=== PATIENT | female | born 1985 | race Caucasian/White ===

== ENCOUNTER 2020-08-16 10:22 | Inpatient (IN) | payer OTHER ==
[~2020-08-16] VITALS: Ht 180.3 cm; Wt 81.6 kg
[2020-08-16 10:57] VITALS: BP 128/78
--- NOTE | 2020-08-16 10:57 | NUR ---
came to er complaints of sever abdominal pain . patient is 1 day post op ablation by dr العلي her pain meds not helping so she was asked to come to er for eval and admission
[2020-08-16] MEDS ORDERED: Omnipaque-300 100ml vial INJ PRN (11:00)
[2020-08-16] MEDS ORDERED: Morphine Sulfate 4mg/ml Inj (IV USE ONLY) IVP ONE ×2 (11:00→13:15)
[2020-08-16] MEDS ORDERED: LORazepam Inj 2mg/ml 1ml IV ONE (11:00)
--- NOTE | 2020-08-16 11:21 | Emergency Room Report ---
History of Present Illness General Chief Complaint: Abdominal Pain Source: Patient Present Illness HPI Patient is a 34-year-old female presents for increased lower abdominal pain after uterine artery embolization. Prior history of fibroids. Reports having previously been taking Percocet as well as tramadol. Reports having persistent pain. Had not been vomiting or having patient reports having several episodes of emesis. Patient had not had any bowel movement since procedure. Denies any dysuria. Reports having recent negative urine test. Denies any fever. No new leg pain or swelling. 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 COVID-19 Screening: Negative COVID-19 COVID-19 Testing Source: nasal Patient History Past Medical History: see triage record Now: No Reviewed Nursing Documentation: PMH: Agreed; PSxH: Agreed Review of Systems All Other Systems: negative except mentioned in HPI Physical Exam Vital Signs Date Time Temp Pulse Resp B/P (MAP) Pulse Ox O2 Delivery O2 Flow Rate FiO2 08/16/20 10:46 98.8 62 18 128/78 (95) 98 Room Air Sp02 EP Interpretation: reviewed, normal General Appearance: normal inspection, well appearing, no apparent distress, alert Head: atraumatic ENT: normal ENT inspection, hearing grossly normal, normal voice Neck: normal inspection, full range of motion, supple, no bony tend Respiratory: normal inspection, lungs clear, normal breath sounds, no respiratory distress, no retraction, no wheezing Cardiovascular #1: regular rate, rhythm, no edema Gastrointestinal: normal inspection, normal bowel sounds, soft, no guarding, no hernia Genitourinary: no CVA tenderness Musculoskeletal: normal inspection, back normal, normal range of motion Neurologic: alert, motor strength/tone normal, crystal calibrator III-XII nml as tested, oriented x3, responsive, speech normal, normal inspection Psychiatric: normal inspection, judgement/insight normal, mood/affect normal Lymphatic: normal inspection Medical Decision Making Diagnostic Impression: Primary Impression: Abdominal pain Additional Impression: Status post embolization of uterine artery ER Course Patient presented for abdominal pain. Differential diagnosis include was not limited to post procedure pain, urinary tract infection, perforation, among others. Laboratory testing as well as CT abdomen pelvis was ordered. Patient will be hospitalized persistent pain. Dr. Wong Beavers contacted me regarding the patient and patient will be seen by him. Patient will be admitted to Dr. Yeboah for inpatient management. Last Vital Signs Date Time Temp Pulse Resp B/P (MAP) Pulse Ox O2 Delivery O2 Flow Rate FiO2 08/16/20 10:57 98.8 18 128/78 98 Room Air 08/16/20 10:54 62 Status: unchanged Disposition: ADMITTED INPATIENT Condition: Stable Nba Londono MD Aug 16, 2020 11:21
--- NOTE | 2020-08-16 11:28 | NUR ---
ED Nurse Note:blood and urine sent to labs, pt. given iv meds
[2020-08-16 11:43] LABS: BASOPHILS % (AUTO) 0.6 % (0.0-2.0); EOSINOPHILS % (AUTO) 0.3 % (0.0-3.0); HEMATOCRIT 43.5 % (37.0-47.0); HEMOGLOBIN 14.1 G/DL (12.0-16.0); LYMPHOCYTES % (AUTO) 16.7 % (20.0-45.0); MEAN CORPUSCULAR VOLUME 88 FL (80-99); NEUTROPHILS % (AUTO) 75.3 % (45.0-75.0); PLATELET COUNT 166 K/UL (150-450); RED BLOOD COUNT 4.96 M/UL (4.20-5.40); RED CELL DISTRIBUTION WIDTH 11.7 % (11.6-14.8)
[2020-08-16 11:52] LABS: ANION GAP 8 mmol/L (5-15); APPEARANCE,URINE CLEAR; BILIRUBIN, URINE NEGATIVE (NEGATIVE); BLOOD UREA NITROGEN 7 mg/dL (7-18); CALCIUM 9.3 MG/DL (8.5-10.1); CARBON DIOXIDE 26 MMOL/L (21-32); CHLORIDE 103 MMOL/L (98-107); COLOR,URINE PALE YELLOW; CREATININE 0.7 MG/DL (0.55-1.30); GLUCOSE, URINE (UA) NEGATIVE (NEGATIVE); KETONES,URINE 3+ (NEGATIVE); LEUKOCYTE ESTERASE ,URINE NEGATIVE (NEGATIVE); NITRITE,URINE NEGATIVE (NEGATIVE); PH,URINE 5 (4.5-8.0); POTASSIUM 3.9 MMOL/L (3.5-5.1); PROTEIN,URINE NEGATIVE (NEGATIVE); SODIUM 137 MMOL/L (136-145); UROBILINOGEN,URINE NORMAL MG/DL (0.0-1.0)
[2020-08-16 12:13] LABS: ALANINE AMINOTRANSFERASE 17 U/L (12-78); ALBUMIN 3.6 G/DL (3.4-5.0); ALBUMIN/GLOBULIN RATIO 1.1 (1.0-2.7); ALKALINE PHOSPHATASE 45 U/L (46-116); ASPARTATE AMINO TRANSFERASE 17 U/L (15-37); BILIRUBIN,TOTAL 0.6 MG/DL (0.2-1.0)
[2020-08-16] MEDS ORDERED: TRAMADOL HCL50 MG ORAL (12:50)
[2020-08-16] MEDS ORDERED: AUGMENTIN 500-1 EACH ORAL (12:50)
[2020-08-16] MEDS ORDERED: PERCOCET 10-321 EAC1 ORAL (12:50)
--- NOTE | 2020-08-16 12:53 | NUR ---
report given to rn in med surg unit patient is to be transferd via gurney
[2020-08-16] MEDS ORDERED: Morphine Sulfate 4mg/ml Inj (IV USE ONLY) ONE (13:03)
--- NOTE | 2020-08-16 13:13 | Diagnostic Imaging Report ---
Clinical Indication: Abdominal pain, history of recent uterine artery embolization Technique: No oral contrast utilized, per emergency room physician request IV administration nonionic contrast. Venous phase spiral acquisition obtained through the abdomen and pelvis. Multiplanar reconstructions were generated. Total dose length product 389 mGycm. CTDIvol(s) 8 mGy. Dose reduction achieved using automated exposure control Comparison: none Findings: The uterus is enlarged, demonstrates multiple fibroids. The largest fibroid is hyperattenuating, as is a second smaller fibroid. The 2 largest fibroids both contain gas bubbles. There is a small retroperitoneal hematoma in the right side of the pelvis. This surrounds the distal right external iliac artery and cecal tip, and tracks up Gerota's fascia on the right. Due to complex shape, exact dimensions are difficult to provide, but this measures approximately 5.4 x 3.6 cm orthogonal axial dimensions at its largest width by about 12 cm craniocaudad. There is no evidence of pseudoaneurysm Lack of enteric contrast limits assessment of the GI tract. The distal esophagus, stomach, duodenum are unremarkable. No small bowel distention. There is a small amount of free fluid within the pelvis. The appendix is not definitely demonstrated, but no findings to suggest acute appendicitis are evident. No evidence of diverticulosis or diverticulitis. The liver contains several cysts as well as innumerable subcentimeter low-attenuation lesions which are too small to characterize. The gallbladder contains dense material, presumably contrast excreted by the liver from prior embolization procedure. The spleen is borderline enlarged, measuring 13 cm long axis dimension. The pancreas, adrenals, kidneys are unremarkable. No retroperitoneal or mesenteric mass or adenopathy. The bladder is distended. A small gas bubble is seen within the bladder nondependently. The included lung bases are clear. The bones are unremarkable. Impression: Small right pelvic retroperitoneal hematoma, mostly surrounding the distal right external iliac artery and cecal tip, presumably related to recent arterial access for uterine fibroid embolization procedure. No evidence of pseudoaneurysm Enlarged fibroid uterus. Dense material within several fibroids most likely represents retained contrast from recent fibroid embolization procedure. Gas within the largest fibroids is an expected finding and is presumably related to necrosis of the fibroids Distended bladder. Gas bubbles within the bladder most likely is due to recent catheterization correlate with any clinical history of such Limited assessment of the GI tract, due to lack of enteric contrast administration Small amount of free pelvic fluid, presumably physiologic Borderline splenomegaly Multiple hepatic cysts. Innumerable subcentimeter low-attenuation liver lesions, too small to characterize, likewise most likely representing benign simple cysts. The CT scanner at [facility] is accredited by the [employer] and the scans are performed using protocols designed to limit radiation exposure to as low as reasonably achievable to attain images of sufficient resolution adequate for diagnostic evaluation.
--- NOTE | 2020-08-16 13:24 | NUR ---
NURSE NOTES: I received telephone report from NORAH Stanley at ER; patient admitted to the floor 4E around 1315; alert x4; on room air, no sing of distress and shortness of breath; no sing of chest pain; Iv Righ-Hand 22G lushes well; skin intact; vitals stable; patient ambulatory; belonging counted and signed by receiving and admitting nurse's; patient had money $143; RN offered for save box for the money, however patient refused; patient stable at this time; will keep monitoring.
[2020-08-16 13:28] VITALS: BP 134/81
[2020-08-16 16:00] VITALS: BP 108/63
[2020-08-16] MEDS: Potassium Chloride 20 MEQ in Dextrose 5%/Lactated Ringer's 1,000 ML IV SCH ×2 (16:33→22:37)
[2020-08-16] MEDS: HYDROmorphone 1mg/ml Carpuject IVP PRN (16:47)
[2020-08-16] MEDS ORDERED: Milk of Magnesia 30ml Ud ORAL PRN (17:45)
[2020-08-16] MEDS ORDERED: Miralax 17gm pkt ORAL PRN (17:45)
--- NOTE | 2020-08-16 17:45 | History & Physical ---
History of Present Illness General Date patient seen: Aug 16, 2020 Reason for Hospitalization: Abdominal Pain Present Illness HPI 34 F h/o UF POD1 S/P UFE p/w BLQ pain. AFVSS on RA. CT without acute findings. No BM x 3 days. No FC, no CP, no SOB, no NVDC. No bleeding. Allergies: Coded Allergies: No Known Allergies (Unverified , 08/16/20) COVID-19 Screening Contact w/high risk pt: No Experienced COVID-19 symptoms?: No Medication History Scheduled Amoxicillin/Potassium Clav 500-125 Tablet* (Augmentin 500-125 Tablet*), 1 TAB ORAL THREE TIMES A DAY, (Reported) Scheduled PRN Oxycodone HCl/Acetaminophen (Percocet 10-325 mg Tablet), 1 TAB ORAL Q4H PRN for For Pain, (Reported) Tramadol Hcl* (Ultram*), 50 MG ORAL Q6H PRN for For Pain, (Reported) Patient History History Provided By: Patient Healthcare decision maker Resuscitation status Advanced Directive on File Past Medical/Surgical History Past Medical/Surgical History: (1) Abdominal pain (2) Status post embolization of uterine artery Review of Systems Review of Symptoms General ROS: no weight loss or fever Psychological ROS: no depression or mood changes, no memory loss Ophthalmic ROS: no visual changes or eye irritation ENT ROS: no nasal congestion, hearing loss, dizziness Allergy and Immunology ROS: no allergic symptoms or urticaria Hematological and Lymphatic ROS: no swollen glands, unusual bleeding or bruising Endocrine ROS: no polyuria, polydipsia, weight changes, temperature intolerance Respiratory ROS: no cough, shortness of breath, or wheezing Cardiovascular ROS: no chest pain or dyspnea on exertion Gastrointestinal ROS: denies abdominal pain, bright red blood in stool. Musculoskeletal ROS: no myalgias or arthralgias Neurological ROS: no TIA or stroke symptoms Dermatological ROS: no new or changing skin lesions, rashes or pruritis Physical Exam Physical Exam General appearance: alert, cooperative, no distress, appears stated age Head: Normocephalic, without obvious abnormality, atraumatic Eyes: conjunctivae/corneas clear. PERRL, EOM's intact. Fundi benign Throat: Lips, mucosa, and tongue normal. Teeth and gums normal Neck: supple, symmetrical, trachea midline, no adenopathy, thyroid: not enlarged, symmetric, no tenderness/mass/nodules, no carotid bruit and no JVD Lungs: clear to auscultation bilaterally Heart: regular rate and rhythm, S1, S2 normal, no murmur, click, rub or gallop Abdomen: soft, non-tender. Bowel sounds normal. No masses, no organomegaly Extremities: extremities normal, atraumatic, no cyanosis or edema Pulses: 2+ and symmetric Skin: Skin color, texture, turgor normal. No rashes or lesions Neurologic: Grossly normal Last 24 Hour Vital Signs Date Time Temp Pulse Resp B/P (MAP) Pulse Ox O2 Delivery O2 Flow Rate FiO2 08/16/20 17:17 97.3 08/16/20 16:00 98.5 70 16 108/63 (78) 98 08/16/20 13:28 97.3 65 16 134/81 (98) 100 08/16/20 13:19 98.2 08/16/20 13:15 Room Air 08/16/20 12:50 98.2 70 18 120/80 98 Room Air 08/16/20 11:54 70 18 120/80 98 08/16/20 11:53 98.2 08/16/20 11:24 62 18 128/78 98 08/16/20 10:57 98.8 18 128/78 98 Room Air 08/16/20 10:54 62 18 Room Air 08/16/20 10:46 98.8 62 18 128/78 (95) 98 Room Air Laboratory Tests Test 08/16/20 11:20 White Blood Count 10.0 K/UL (4.8-10.8) Red Blood Count 4.96 M/UL (4.20-5.40) Hemoglobin 14.1 G/DL (12.0-16.0) Hematocrit 43.5 % (37.0-47.0) Mean Corpuscular Volume 88 FL (80-99) Mean Corpuscular Hemoglobin 28.5 PG (27.0-31.0) Mean Corpuscular Hemoglobin Concent 32.5 G/DL (32.0-36.0) Red Cell Distribution Width 11.7 % (11.6-14.8) Platelet Count 166 K/UL (150-450) Mean Platelet Volume 10.2 FL (6.5-10.1) H Neutrophils (%) (Auto) 75.3 % (45.0-75.0) H Lymphocytes (%) (Auto) 16.7 % (20.0-45.0) L Monocytes (%) (Auto) 7.0 % (1.0-10.0) Eosinophils (%) (Auto) 0.3 % (0.0-3.0) Basophils (%) (Auto) 0.6 % (0.0-2.0) Urine Color Pale yellow Urine Appearance Clear Urine pH 5 (4.5-8.0) Urine Specific [place] 1.010 (1.005-1.035) Urine Protein Negative (NEGATIVE) Urine Glucose (UA) Negative (NEGATIVE) Urine Ketones 3+ (NEGATIVE) H Urine Blood Negative (NEGATIVE) Urine Nitrite Negative (NEGATIVE) Urine Bilirubin Negative (NEGATIVE) Urine Urobilinogen Normal MG/DL (0.0-1.0) Urine Leukocyte Esterase Negative (NEGATIVE) Urine HCG, Qualitative Negative (NEGATIVE) Sodium Level 137 MMOL/L (136-145) Potassium Level 3.9 MMOL/L (3.5-5.1) Chloride Level 103 MMOL/L (98-107) Carbon Dioxide Level 26 MMOL/L (21-32) Anion Gap 8 mmol/L (5-15) Blood Urea Nitrogen 7 mg/dL (7-18) Creatinine 0.7 MG/DL (0.55-1.30) Estimat Glomerular Filtration Rate > 60 mL/min (>60) Glucose Level 97 MG/DL (74-106) Calcium Level 9.3 MG/DL (8.5-10.1) Total Bilirubin 0.6 MG/DL (0.2-1.0) Aspartate Amino Transf (AST/SGOT) 17 U/L (15-37) Alanine Aminotransferase (ALT/SGPT) 17 U/L (12-78) Alkaline Phosphatase 45 U/L (46-116) L Total Protein 7.0 G/DL (6.4-8.2) Albumin 3.6 G/DL (3.4-5.0) Globulin 3.4 g/dL Albumin/Globulin Ratio 1.1 (1.0-2.7) Height (Feet): 5 Height (Inches): 11.00 Weight (Pounds): 180 Medications Current Medications Medications (Trade) Dose Ordered Sig/Diamond Route PRN Reason Start Time Stop Time Status Last Admin Dose Admin Cefazolin Sodium 1 gm/Dextrose 55 ml @ 110 mls/hr Q8HR IVPB 08/16/20 22:00 08/23/20 21:59 Hydromorphone HCl (Dilaudid) 1 mg Q3H PRN IVP Mild Pain (Pain Scale 1-3) 08/16/20 14:30 08/23/20 14:29 08/16/20 16:47 Hydromorphone HCl (Dilaudid) 2 mg Q2H PRN IVP Severe Pain (Pain Scale 7-10) 08/16/20 14:30 08/23/20 14:29 Hydromorphone HCl (Dilaudid) 2 mg Q3H PRN IVP Moderate Breakthru Pain (5-7) 08/16/20 14:30 08/23/20 14:29 Iohexol (OMNIPAQUE-300 100ml) 100 ml NOW PRN INJ Radiology Procedure 08/16/20 11:00 08/18/20 10:59 Methylnaltrexone [place] (Relistor) 12 mg Q48H PRN SUBQ opiate induced constipation 08/16/20 14:30 08/23/20 14:29 Ondansetron HCl (Zofran) 4 mg Q6H PRN IVP Nausea & Vomiting 08/16/20 14:30 09/15/20 14:29 08/16/20 16:45 Potassium Chloride 20 meq/ Dextrose/Lactated Ringer's 1,010 ml @ 150 mls/hr Q6H44M IV 08/16/20 16:00 09/15/20 15:59 08/16/20 16:33 Assessment/Plan Problem List: (1) Status post embolization of uterine artery ICD Codes: Z98.890 - Other specified postprocedural states SNOMED: 797688697 (2) Abdominal pain ICD Codes: R10.9 - Unspecified abdominal pain SNOMED: 53309223 (3) Post-op pain ICD Codes: G89.18 - Other acute postprocedural pain SNOMED: 482292271 (4) Constipation ICD Codes: K59.00 - Constipation, unspecified SNOMED: 32532733 Assessment/Plan: Admit obs Pain control/supportive care PRN O2 IS Diamond-operative Abx Bowel regimen OOB mIVF DVT Px [employer] SUPER[employer]OR consult [facility] Hospital declaration INPATIENT level of care is warranted for this patient because patient is a 89 year old with who presents with suspicion of . I have a high level of concern because . Patient is at high risk for . Plan of care/treatment include . Patient care is expected to be greater than 2 midnights. OBSERVATION level of care is warranted for this patient. Patient is a 89 year old with who presents with . Patient will be admitted for 1 midnight, but if additional night(s) is/are necessary, patient will be converted to inpatient status for the entire hospitalization Disposition: Once the patient is stable to leave the hospital, I anticipate the patient will likely be discharged to the following environment: Estimated discharge date: I spent 70 minutes on this patient's case, and minutes was dedicated to counseling and/or care coordination. MIPS (Merit-based Incentive Payment System) Applicable CPT: 43513, 39435 CHECK ALL THAT ARE MET: Measure #5 (CHF): All ages. Prescribe RYNA/ARB upon discharge for patients with left ventricular systolic dysfunction. If not, the reason is clearly documented in the medical chart. Measure #8 (CHF): All ages. Prescribe a beta destiny upon discharge for patients with left ventricular systolic dysfunction. If not, the reason is clearly documented in the medical chart. Measure #47 Advance care plan or surrogate decision maker documented in the medical record. Measure #130 The provider has documented, updated, or reviewed the patients current medication list and has documented it in the patients note. Measure #374 (All): Send report to referring provider. Measure #407(Sepsis due to MSSA bacteremia): Age 18+ Patient treated with a beta-lactam antibiotic (Nafcillin, Oxacillin or Cefazolin) as definitive therapy. MEDICAL COMPLEXITY High complexity medical decision making (need 2/3 categories) Problem - need 4 points Acute/new problem with new plan for workup (4 points, 1 max) Acute/new problem without additional workup (3 points, 1 max) Unstable chronic problem actively being managed (2 point each, 2 max) Stable chronic problem actively being managed (1 point each, 2 max) Self-limited/transient process (constipation, muscle ache, etc) (1 point each, 2 max) Data - need 4 points Reviewed labs/imaging studies (1 points, 2 max) Independent review of imaging (EKG, xrays, etc) (2 points, 2 max) Discussed case with consult/other MD/RN (2 points, 2 max) High Risk - qualify if have one of the following: Severe exacerbation of acute problem, acute mental status change, IV narcotics, monitoring drug levels (vancomycin, INR, tacrolimus etc) Jefry Yeboah MD Aug 16, 2020 17:45
[2020-08-16] MEDS ORDERED: Magnesium Citrate Liq Btl ORAL SCH (18:00)
[2020-08-16] MEDS: Docusate 100mg cap ORAL SCH (18:30)
--- NOTE | 2020-08-16 19:33 | NUR ---
NURSE HAND-OFF: Important Events on Shift:Pain management; Patient Status: Diet: Pending Orders: Pending Results/Labs: Pending MD notification: Latest Vital Signs: Temperature 97.3 , Pulse 70 , B/P 108 /63 , Respiratory Rate 16 , O2 SAT 98 , Room Air, O2 Flow Rate . Vital Sign Comment: Latest Chery Fall Score: 20 Fall Risk: Low Risk Safety Measures: Call light Within Reach, Bed Alarm Zone 2, Side Rails Side Rails x2, Bed position Low and Locked. Fall Precautions: Yellow Socks Door Sign Patient Fall Education Report given to .
[2020-08-16 20:00] VITALS: BP 127/80
--- NOTE | 2020-08-16 20:00 | NUR ---
NURSE NOTES: Received report from NORAH Mast and rounds made. Received pt lying in bed AOX4, anxious, crying, complaining of abdominal pain 10/10 on pain scale. Pt denies nausea or vomiting. Will medicate for pain. Pt stated she had vaginal hemorrage moderate amount, not witnessed. Diamond pad provided to patient. IV fluid infusing per mD order. NAD noted. Bed in lowest position and locked. Side rails up x 2. Call light within reach. Will continue to monitor.
[2020-08-16] MEDS: ceFAZolin sod 1 GM in D5W 55 ML IVPB SCH (21:55)
[2020-08-17] VITALS: BP 109/70
[2020-08-17 04:00] VITALS: BP 118/74
[2020-08-17] MEDS: HYDROmorphone 1mg/ml Carpuject IVP PRN ×2 (04:18→10:25)
[2020-08-17] MEDS: Potassium Chloride 20 MEQ in Dextrose 5%/Lactated Ringer's 1,000 ML IV SCH ×2 (05:09→12:12)
[2020-08-17] MEDS: ceFAZolin sod 1 GM in D5W 55 ML IVPB SCH ×3 (05:10→21:04)
[2020-08-17 07:12] LABS: ALANINE AMINOTRANSFERASE 12 U/L (12-78); ALBUMIN 3.1 G/DL (3.4-5.0); ALKALINE PHOSPHATASE 36 U/L (46-116); ANION GAP 5 mmol/L (5-15); ASPARTATE AMINO TRANSFERASE 14 U/L (15-37); BILIRUBIN,TOTAL 0.3 MG/DL (0.2-1.0); BLOOD UREA NITROGEN 3 mg/dL (7-18); CALCIUM 8.4 MG/DL (8.5-10.1); CARBON DIOXIDE 29 MMOL/L (21-32); CHLORIDE 106 MMOL/L (98-107); CREATININE 0.6 MG/DL (0.55-1.30); POTASSIUM 4.2 MMOL/L (3.5-5.1); SODIUM 140 MMOL/L (136-145)
[2020-08-17 07:14] LABS: BASOPHILS % (AUTO) 0.8 % (0.0-2.0); HEMATOCRIT 37.2 % (37.0-47.0); HEMOGLOBIN 12.3 G/DL (12.0-16.0); LYMPHOCYTES % (AUTO) 23.9 % (20.0-45.0); MEAN CORPUSCULAR VOLUME 88 FL (80-99); MONOCYTES % (AUTO) 8.7 % (1.0-10.0); NEUTROPHILS % (AUTO) 65.6 % (45.0-75.0); PLATELET COUNT 116 K/UL (150-450); RED BLOOD COUNT 4.23 M/UL (4.20-5.40); WHITE BLOOD COUNT 7.1 K/UL (4.8-10.8)
--- NOTE | 2020-08-17 07:25 | NUR ---
NURSE NOTES: Received report from Chalino ALMAZAN. Patient is awake and oriented, had episode of emesis during rounds, approximately 100mL. Patient stated she took a "large drink of water" and vomited, denies nausea s/p episode of emesis. Reporting abdominal pain rated 3/10. IV fluid infusing per order. Patient updated on plan of care. Side rails upx2, bed low and locked, call light within reach.
--- NOTE | 2020-08-17 07:28 | NUR ---
NURSE HAND-OFF: Important Events on Shift: No B.M. Patient Status: Stable Diet: Soft Pending Orders: None Pending Results/Labs: N/A Pending MD notification: N/A Latest Vital Signs: Temperature 98.8 , Pulse 84 , B/P 118 /74 , Respiratory Rate 18 , O2 SAT 98 , Room Air, O2 Flow Rate . Vital Sign Comment: Stable Latest Chery Fall Score: 20 Fall Risk: Low Risk Safety Measures: Call light Within Reach, Bed Alarm Zone 1, Side Rails Side Rails x2, Bed position Low and Locked. Fall Precautions: Yellow Gown Report given to NORAH Berrios
[2020-08-17 08:00] VITALS: BP 115/71
--- NOTE | 2020-08-17 08:01 | NUR ---
NURSE NOTES: Patient had second episode of emesis, approximately 100mL, patient medicated with Zofran per order, breakfast tray removed, patient educated to remain NPO pending MD eval/orders, patient verbalized understanding.
--- NOTE | 2020-08-17 08:14 | NUR ---
NURSE NOTES: Notified Dr. Beavers that patient had 2 episodes of emesis this AM. MD ordered to place patient on a clear liquid diet and to give patient Relistor as ordered and notify Dr. Yeboah. Order entered.
[2020-08-17] MEDS: Docusate 100mg cap ORAL SCH ×2 (08:51→17:42)
[2020-08-17] MEDS: Relistor 12mg/0.6ml Vial SUBQ PRN ×2 (08:51→10:25)
[2020-08-17] MEDS: LORazepam 1mg tab ORAL PRN ×2 (09:11→21:15)
[2020-08-17] MEDS ORDERED: DiphenhydrAMINE 50mg/ml Inj IVP PRN (09:15)
--- NOTE | 2020-08-17 09:20 | NUR ---
NURSE NOTES: Patient requested pain medication dilaudid for severe abdominal pain, medication was drawn up in syringe and prior to administration patient changed her mind and stated she no longer wanted the pain medication and requested Ativan for anxiety, patient is visibly anxious and crying. Dilaudid wasted with second nurse witness and Ativan administered per patient request.
--- NOTE | 2020-08-17 09:44 | NUR ---
CASE MANAGEMENT:REVIEW 34 YR OLD FEMALE PRESENTED TO OUR ER PMH: S/P UTERINE ARTERY EMBOLIZATION CC: SEVERE ABDOMINAL PAIN SI:POST OP PAIN 98.7 62 18 128/78 98% ON RA IS: IV ZOFRAN IV MORPHINE X2 IV ATIVAN X1 CT ABD/PELVIS : TO MED/SURG UNIT PLAN: IVF+KCL@150/HR IV DILAUDID Q3HRS PRN IV ANCEF Q8HRS
--- NOTE | 2020-08-17 11:07 | NUR ---
NURSE NOTES: Received order from Dr. Beavers to give patient dulcolax suppository x1 and fleets enema if patient does not have BM 90 minutes after dulcolax suppository. Order entered, will carry out.
[2020-08-17 12:00] VITALS: BP 123/79
--- NOTE | 2020-08-17 12:35 | NUR ---
INSURANCE CLINCALS AND REVIEW FAXED TO [facility] FAX [phone] TELE [phone] REF [id number]
--- NOTE | 2020-08-17 12:58 | NUR ---
NURSE NOTES: Patient has not had BM yet, patient requesting to wait for fleet's enema, patient stated she wants to ambulate more and have lunch. Will continue to follow up.
[2020-08-17] MEDS: oxyCODONE 5mg IR tab ORAL PRN ×2 (13:41→23:34)
--- NOTE | 2020-08-17 13:46 | General Surgery Progress Note ---
General Surgery-Progress Note Subjective Day of Surgery: august 15 Procedure Performed uterine fibroid embolization Chief Complaint: uncontrolled post procedure pain Symptoms: tolerating diet, voiding well, passing flatus, pain decreased Objective Last 24 Hour Vital Signs Date Time Temp Pulse Resp B/P (MAP) Pulse Ox O2 Delivery O2 Flow Rate FiO2 08/17/20 12:00 98.3 65 18 123/79 (94) 97 08/17/20 09:11 55 18 115/71 97 08/17/20 09:00 Room Air 08/17/20 08:00 98.2 55 18 115/71 (86) 97 08/17/20 04:00 98.8 84 18 118/74 (89) 98 08/17/20 00:00 98.4 82 18 109/70 (83) 98 08/16/20 21:00 Room Air 08/16/20 20:00 98.2 87 18 127/80 (96) 100 08/16/20 17:17 97.3 08/16/20 16:00 98.5 70 16 108/63 (78) 98 I&O Intake and Output 08/16/20 08/17/20 19:00 07:00 Intake Total 300 ml 2270 ml Balance 300 ml 2270 ml Intake Oral 360 ml IV Total 300 ml 1910 ml # Voids 1 5 Dressing: dry Wound: clean Drains: none Cardiovascular: RSR Respiratory: clear Abdomen: soft, flat, scaphoid, tenderness, present bowel sounds Extremities: no edema, no tenderness, no cyanosis Laboratory Tests Test 08/17/20 05:00 White Blood Count 7.1 K/UL (4.8-10.8) Red Blood Count 4.23 M/UL (4.20-5.40) Hemoglobin 12.3 G/DL (12.0-16.0) Hematocrit 37.2 % (37.0-47.0) Mean Corpuscular Volume 88 FL (80-99) Mean Corpuscular Hemoglobin 29.1 PG (27.0-31.0) Mean Corpuscular Hemoglobin Concent 33.2 G/DL (32.0-36.0) Red Cell Distribution Width 12.0 % (11.6-14.8) Platelet Count 116 K/UL (150-450) L Mean Platelet Volume 11.0 FL (6.5-10.1) H Neutrophils (%) (Auto) 65.6 % (45.0-75.0) Lymphocytes (%) (Auto) 23.9 % (20.0-45.0) Monocytes (%) (Auto) 8.7 % (1.0-10.0) Eosinophils (%) (Auto) 1.0 % (0.0-3.0) Basophils (%) (Auto) 0.8 % (0.0-2.0) Sodium Level 140 MMOL/L (136-145) Potassium Level 4.2 MMOL/L (3.5-5.1) Chloride Level 106 MMOL/L (98-107) Carbon Dioxide Level 29 MMOL/L (21-32) Anion Gap 5 mmol/L (5-15) Blood Urea Nitrogen 3 mg/dL (7-18) L Creatinine 0.6 MG/DL (0.55-1.30) Estimat Glomerular Filtration Rate > 60 mL/min (>60) Glucose Level 120 MG/DL (74-106) H Calcium Level 8.4 MG/DL (8.5-10.1) L Total Bilirubin 0.3 MG/DL (0.2-1.0) Aspartate Amino Transf (AST/SGOT) 14 U/L (15-37) L Alanine Aminotransferase (ALT/SGPT) 12 U/L (12-78) Alkaline Phosphatase 36 U/L (46-116) L Total Protein 6.2 G/DL (6.4-8.2) L Albumin 3.1 G/DL (3.4-5.0) L Globulin 3.1 g/dL Albumin/Globulin Ratio 1.0 (1.0-2.7) Imaging small retroperitoneal hematoma near arteriotomy site right side, patient informed, no symptoms of expansion. otherwise normal study. Additional Comments emesis this am, now improved, tolerating clear liquids, will advance when patient wishes Plan Additional Comments attempt oral analgesia, ambulate, fleet's enema for relief of constipation. Wong Beavers MD Aug 17, 2020 13:46
--- NOTE | 2020-08-17 13:49 | NUR ---
NURSE NOTES: Received call from Dr. Ruthann MD ordered to trial patient on PO pain medication Roxicodone 10mg and offer to patient before IV pain medication. Medication administered as ordered, patient is still requesting to wait to administer fleets enema, Dr. Beavers is aware.
[2020-08-17] MEDS ORDERED: AMOX TR-K CLV1 EAC2 ORAL (15:41)
[2020-08-17] MEDS ORDERED: ZOFRAN ODT8 MG ORAL (15:41)
[2020-08-17] MEDS ORDERED: MIRALAX17 G2 ORAL (15:41)
[2020-08-17] MEDS ORDERED: ENDOCET 5-3251 EACH ORAL (15:41)
[2020-08-17 16:00] VITALS: BP 112/68
--- NOTE | 2020-08-17 16:28 | Pulmonology Progress Note ---
Subjective Allergies: Coded Allergies: No Known Allergies (Unverified , 08/16/20) Subjective AFVSS on RA Pain well controlled + NV this am + flatus no BM no FC Objective Last 24 Hour Vital Signs Date Time Temp Pulse Resp B/P (MAP) Pulse Ox O2 Delivery O2 Flow Rate FiO2 08/17/20 16:00 98.6 64 18 112/68 (83) 94 08/17/20 12:00 98.3 65 18 123/79 (94) 97 08/17/20 09:11 55 18 115/71 97 08/17/20 09:00 Room Air 08/17/20 08:00 98.2 55 18 115/71 (86) 97 08/17/20 04:00 98.8 84 18 118/74 (89) 98 08/17/20 00:00 98.4 82 18 109/70 (83) 98 08/16/20 21:00 Room Air 08/16/20 20:00 98.2 87 18 127/80 (96) 100 08/16/20 17:17 97.3 Intake and Output 08/16/20 08/17/20 19:00 07:00 Intake Total 300 ml 2270 ml Balance 300 ml 2270 ml Intake Oral 360 ml IV Total 300 ml 1910 ml # Voids 1 5 General Appearance: WD/WN, no acute distress HEENT: normocephalic, atraumatic, anicteric, mucous membranes moist Respiratory: chest wall non-tender, lungs clear, normal breath sounds, no respiratory distress, no accessory muscle use Cardiovascular: normal peripheral pulses, normal rate, regular rhythm Abdomen: normal bowel sounds, soft, non tender, no organomegaly, non distended, no mass Extremities: no cyanosis, no clubbing, no edema Laboratory Tests 08/17/20 05:00: White Blood Count 7.1, Red Blood Count 4.23, Hemoglobin 12.3, Hematocrit 37.2, Mean Corpuscular Volume 88, Mean Corpuscular Hemoglobin 29.1, Mean Corpuscular Hemoglobin Concent 33.2, Red Cell Distribution Width 12.0, Platelet Count 116L, Mean Platelet Volume 11.0H, Neutrophils (%) (Auto) 65.6, Lymphocytes (%) (Auto) 23.9, Monocytes (%) (Auto) 8.7, Eosinophils (%) (Auto) 1.0, Basophils (%) (Auto) 0.8, Sodium Level 140, Potassium Level 4.2, Chloride Level 106, Carbon Dioxide Level 29, Anion Gap 5, Blood Urea Nitrogen 3L, Creatinine 0.6, Estimat Glomerular Filtration Rate > 60, Glucose Level 120H, Calcium Level 8.4L, Total Bilirubin 0.3, Aspartate Amino Transf (AST/SGOT) 14L, Alanine Aminotransferase (ALT/SGPT) 12, Alkaline Phosphatase 36L, Total Protein 6.2L, Albumin 3.1L, Globulin 3.1, Albumin/Globulin Ratio 1.0 Current Medications Medications (Trade) Dose Ordered Sig/Diamond Route PRN Reason Start Time Stop Time Status Last Admin Dose Admin Cefazolin Sodium 1 gm/Dextrose 55 ml @ 110 mls/hr Q8HR IVPB 08/16/20 22:00 08/23/20 21:59 08/17/20 13:42 Diphenhydramine HCl (Benadryl) 25 mg Q6H PRN IVP Itching 08/17/20 09:15 09/16/20 09:14 Docusate Sodium (Colace) 100 mg TWICE A DAY ORAL 08/16/20 18:00 09/15/20 17:59 08/17/20 08:51 Hydromorphone HCl (Dilaudid) 1 mg Q3H PRN IVP Mild Pain (Pain Scale 1-3) 08/16/20 14:30 08/23/20 14:29 08/17/20 10:25 Hydromorphone HCl (Dilaudid) 2 mg Q2H PRN IVP Severe Pain (Pain Scale 7-10) 08/16/20 14:30 08/23/20 14:29 08/17/20 14:44 Hydromorphone HCl (Dilaudid) 2 mg Q3H PRN IVP Moderate Breakthru Pain (5-7) 08/16/20 14:30 08/23/20 14:29 08/16/20 23:40 Iohexol (OMNIPAQUE-300 100ml) 100 ml NOW PRN INJ Radiology Procedure 08/16/20 11:00 08/18/20 10:59 Lorazepam (Ativan) 1 mg Q4H PRN ORAL For Anxiety 08/17/20 09:15 08/24/20 09:14 08/17/20 09:11 Magnesium Hydroxide (Mom) 30 ml HSPRN PRN ORAL Constipation 08/16/20 17:45 09/15/20 17:44 08/16/20 23:43 Methylnaltrexone Crane (Relistor) 12 mg Q48H PRN SUBQ opiate induced constipation 08/16/20 14:30 08/23/20 14:29 08/17/20 10:25 Ondansetron HCl (Zofran) 4 mg Q6H PRN IVP Nausea & Vomiting 08/16/20 14:30 09/15/20 14:29 08/17/20 07:50 Oxycodone HCl (Roxicodone) 10 mg Q3H PRN ORAL PAIN 4-10 08/17/20 13:36 08/24/20 13:35 08/17/20 13:41 Polyethylene Glycol (Miralax) 17 gm DAILYPRN PRN ORAL Constipation 08/16/20 17:45 09/15/20 17:44 Assessment/Plan Problems: (1) Status post embolization of uterine artery (2) Abdominal pain (3) Post-op pain (4) Constipation Assessment/Plan Pain control/supportive care PRN O2 IS Diamond-operative Abx Bowel regimen, PRN enemia PRN anti-emmetics OOB DVT 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
--- NOTE | 2020-08-17 16:31 | NUR ---
NURSE NOTES: Received call from Dr. Beavers, provided updated on patient's status, patient still does not want fleet's enema at this time, Dr. Beavers notified and aware and stated ok for patient to receive whenever she agrees. Order entered.
[2020-08-17] MEDS ORDERED: Fleet's Enema 133ml RECTAL SCH (17:45)
--- NOTE | 2020-08-17 17:53 | NUR ---
NURSE NOTES: Administered fleet's enema per order, patient tolerated well.
--- NOTE | 2020-08-17 18:39 | NUR ---
NURSE NOTES: Patient evacuated brown liquid, but no solid stool. Patient stated her abdominal pain is improving s/p enema administration.
--- NOTE | 2020-08-17 19:11 | NUR ---
NURSE HAND-OFF: Important Events on Shift: Bowel regimen, pain management, clear liquid diet. Patient Status: stable Diet: clear liquid Pending Orders: n/a Pending Results/Labs: n/a Pending MD notification: n/a Latest Vital Signs: Temperature 98.6 , Pulse 64 , B/P 112 /68 , Respiratory Rate 18 , O2 SAT 94 Vital Sign Comment: VS stable Latest Chery Fall Score: 20 Fall Risk: Low Risk Safety Measures: Call light Within Reach, Bed Alarm Zone 1, Side Rails Side Rails x2, Bed position Low and Locked. Fall Precautions: Patient Fall Education Report given to Flo ALMAZAN.
--- NOTE | 2020-08-17 19:15 | NUR ---
NURSE NOTES: received pt and report from NORAH Berrios. Pt alert and oriented x 4 with no acute s/s of distress. mild pain currently, will give pain medication. IV site clean dry and intact and saline locked. Plan of care discussed.
[2020-08-17 20:00] VITALS: BP 126/85
[2020-08-18] VITALS: BP 122/77
--- NOTE | 2020-08-18 00:06 | NUR ---
NURSE NOTES: pt vital signs are stable at this time. no acute s/s of distress. pain controlled at this time at a comfortable level. pt complaining about bloating. pt given miralax. pt attempted to use the bathroom. she claims a little brown liquid bowel movement occurred. pt is passing gas at this time as well. encouraged patient to walk around the unit to stimulate urge to have bowel movement. pt currently ambulated independently 3 laps around unit.
[2020-08-18] MEDS: oxyCODONE 5mg IR tab ORAL PRN ×4 (02:34→12:17)
[2020-08-18 04:00] VITALS: BP 114/66
--- NOTE | 2020-08-18 04:13 | NUR ---
NURSE NOTES: pt vital signs are stable at this time. no co pain at the moment, pt is asleep currently. no acute s/s of distress. no complaints of bloating at this time.
[2020-08-18] MEDS: ceFAZolin sod 1 GM in D5W 55 ML IVPB SCH (05:00)
--- NOTE | 2020-08-18 05:30 | NUR ---
NURSE NOTES: went it to pt room and noticed pt did not take the Miralax provided. pt stated last night she was going to take it later on in the evening. Miralax returned to pyxis, administration undone. pt offered MoM instead but pt refused. pt claims she is passing gas but still has had no bowel movement. Will endorse to day shift nurse.
--- NOTE | 2020-08-18 07:10 | NUR ---
NURSE HAND-OFF: Important Events on Shift:pain management, still no bowel movement Patient Status: stable Diet: clear liquid Pending Orders: NA Pending Results/Labs:NA Pending MD notification:NA Latest Vital Signs: Temperature 99.7 , Pulse 72 , B/P 114 /66 , Respiratory Rate 20 , O2 SAT 95 , Room Air, O2 Flow Rate . Vital Sign Comment: stable through the shift Latest Chery Fall Score: 20 Fall Risk: Low Risk Safety Measures: Call light Within Reach, Bed Alarm Zone 1, Side Rails Side Rails x2, Bed position Low and Locked. Fall Precautions: Patient Fall Education Report given to NORAH Escudero.
--- NOTE | 2020-08-18 07:15 | NUR ---
NURSE NOTES: Report received from Flo RN. Patient up ambulating in halls during report. Rounds made. AOx4, calm, respirations even/unlabored on RA. Requesting soft diet, appetite fair on clear liquids. Reports: pelvic pain to lower abdomen "where fibroid was", feeling bloated yesterday, flatulence present, no NV, experiencing acid reflex, will update Dr. Beavers. Right AC, saline lock. Up to bathroom. Call light in reach, bed in lowest position, will continue to monitor.
[2020-08-18 08:00] VITALS: BP 108/61
--- NOTE | 2020-08-18 08:40 | NUR ---
NURSE NOTES: Received call from Dr. Koo, updated on vitals, patient current status, pelvic pain level, BM, c/o acid reflex, bloating, diet, flatulence present. Orders received for soft diet, Mag Citrate bottle x1, CT abdomen/pelvis without contrast STAT, Protonix 40 mg PO daily, CBC CMP STAT, will follow as ordered, will update patient.
[2020-08-18] MEDS: Docusate 100mg cap ORAL SCH ×2 (09:00→17:49)
[2020-08-18 09:48] LABS: BASOPHILS % (AUTO) 0.6 % (0.0-2.0); EOSINOPHILS % (AUTO) 0.9 % (0.0-3.0); HEMATOCRIT 41.5 % (37.0-47.0); HEMOGLOBIN 13.7 G/DL (12.0-16.0); LYMPHOCYTES % (AUTO) 12.9 % (20.0-45.0); MEAN CORPUSCULAR VOLUME 88 FL (80-99); MONOCYTES % (AUTO) 8.5 % (1.0-10.0); PLATELET COUNT 141 K/UL (150-450); RED BLOOD COUNT 4.74 M/UL (4.20-5.40); RED CELL DISTRIBUTION WIDTH 11.7 % (11.6-14.8); WHITE BLOOD COUNT 8.6 K/UL (4.8-10.8)
[2020-08-18 09:58] LABS: ANION GAP 5 mmol/L (5-15); BLOOD UREA NITROGEN 3 mg/dL (7-18); CALCIUM 9.1 MG/DL (8.5-10.1); CARBON DIOXIDE 30 MMOL/L (21-32); CHLORIDE 102 MMOL/L (98-107); CREATININE 0.7 MG/DL (0.55-1.30); POTASSIUM 3.7 MMOL/L (3.5-5.1); SODIUM 137 MMOL/L (136-145)
[2020-08-18] MEDS ORDERED: Magnesium Citrate Liq Btl ORAL SCH (10:00)
[2020-08-18 10:02] LABS: ALANINE AMINOTRANSFERASE 16 U/L (12-78); ALBUMIN 3.4 G/DL (3.4-5.0); ALBUMIN/GLOBULIN RATIO 0.9 (1.0-2.7); ALKALINE PHOSPHATASE 50 U/L (46-116); ASPARTATE AMINO TRANSFERASE 14 U/L (15-37); BILIRUBIN,TOTAL 0.5 MG/DL (0.2-1.0)
--- NOTE | 2020-08-18 10:30 | NUR ---
NURSE NOTES: Spoke with Ruthann, confirmed no oral or IV contrast for CT of abdomen pelvis, relayed to surfacing technician. Patient sent down for CT abdomen pelvis via WC in stable condition at this time.
[2020-08-18 12:00] VITALS: BP 106/58
--- NOTE | 2020-08-18 12:00 | NUR ---
NURSE NOTES: Spoke to Dr. Beavers with updates, order received to obtain stool for CDIFF, will update patient.
--- NOTE | 2020-08-18 12:04 | Diagnostic Imaging Report ---
Indication: Reason For Exam: ABD PAIN Technique: Spiral acquisitions obtained through the abdomen and pelvis. No oral contrast utilized, per referring physician request No IV contrast utilized, per referring physician request.. Multiplanar reconstructions were generated. Total dose length product 395 mGycm. CTDIvol(s) 7 mGy. Dose reduction achieved using automated exposure control Comparison: 08/16/2020 Findings: Again demonstrated is enlargement of the uterus, which contains multiple masses. These masses demonstrate contrast retention from a prior uterine fibroid embolization procedure. Gas is seen within the largest masses, also evident previously, probably not significantly changed in amount. Small amount of free pelvic fluid is again noted, slightly decreased from the prior exam. Small right-sided pelvic hematoma is probably unchanged, less well-demonstrated due to the lack of IV contrast on the current exam. Lack of enteric contrast limits assessment of the GI tract. Small bowel loops containing fluid, are not distended. Colon contains what appears to be mostly liquid stool. A focal density within the rectum probably represents an ingested tablet, previously present within the proximal sigmoid colon. No free intraperitoneal gas. The distal esophagus, stomach, duodenum are unremarkable. Lack of IV contrast limits assessment of solid organs. Liver again demonstrates multiple cysts as well as low-attenuation lesions which are too small to characterize. Contrast is seen within the gallbladder. No biliary ductal dilatation. The pancreas, adrenals, kidneys are unremarkable. The spleen does not measures large as it did on the prior exam, currently upper limits of normal in size. No retroperitoneal or mesenteric mass or adenopathy. The bladder again demonstrates a gas bubble. Included lung bases are clear. The bones are unremarkable. Impression: Limited assessment of the GI tract, due to lack of enteric contrast administration. Exam is also limited due to the lack of IV contrast administration. Small right suprainguinal/pelvic hematoma is probably unchanged, presumably related to prior catheterization procedure. Enlarged uterus with multiple masses, retained contrast from prior embolization procedure, and gas within the largest fibroid is presumably related to necrosis from the embolization procedure. These findings are unchanged Small amount of free pelvic fluid, likely physiologic, decreased from prior study. Liver cysts and subcentimeter low-attenuation lesions in the liver, too small to characterize, most likely benign cysts. Persistent gas bubbles within the bladder, most likely related to recent catheterization The CT scanner at [facility] is accredited by the [employer] and the scans are performed using protocols designed to limit radiation exposure to as low as reasonably achievable to attain images of sufficient resolution adequate for diagnostic evaluation.
--- NOTE | 2020-08-18 12:30 | NUR ---
NURSE NOTES: Spoke to Dr. Beavers, with updates, patient returned from CT, refusing Mag Citrate and Colace, labs reviewed, appetite with soft diet fair, denies NV. No further orders.
--- NOTE | 2020-08-18 12:40 | NUR ---
NURSE NOTES: Rounds made with Dr. Beavers at bedside. Pain medication updated (roxicodone discontinued, tramadol for mild pain, tylenol #3 for moderate-severe pain), UA to be collected. Will follow as ordered.
[2020-08-18] MEDS ORDERED: traMADol 50mg tab ORAL PRN (12:45)
[2020-08-18] MEDS ORDERED: Tylenol #3 tab (300mg/30mg) ORAL PRN (12:45)
--- NOTE | 2020-08-18 12:55 | NUR ---
CASE MANAGEMENT:REVIEW 08/18/20 SI:POST OP PAIN S/P UTERINE ARTERY EMBOLIZATION 99.7 72 20 114/66 95% ON RA IS: IV ANCEF Q8HRS PROTONIX PO QD IV DILAUDID Q3HRS PRN : MED/SURG 4EAST DCP: FROM HOME PLAN: CT (+) SMALL RT SUPRINGUINAL/PELVIC HEMATOMA ~ORAL ANALGESICS ~ AMBULATE ~FLEETS ENEMA FOR CONSTIPATION
--- NOTE | 2020-08-18 13:45 | NUR ---
NURSE NOTES: Stool for CDIFF and UA sent down to lab at this time.
[2020-08-18 14:20] LABS: APPEARANCE,URINE CLEAR; BILIRUBIN, URINE NEGATIVE (NEGATIVE); COLOR,URINE PALE YELLOW; GLUCOSE, URINE (UA) NEGATIVE (NEGATIVE); KETONES,URINE NEGATIVE (NEGATIVE); LEUKOCYTE ESTERASE ,URINE NEGATIVE (NEGATIVE); NITRITE,URINE NEGATIVE (NEGATIVE); PH,URINE 7 (4.5-8.0); PROTEIN,URINE NEGATIVE (NEGATIVE); UROBILINOGEN,URINE NORMAL MG/DL (0.0-1.0)
--- NOTE | 2020-08-18 15:07 | NUR ---
NURSE NOTES: Patient states "Dr. Beavers said I can go home today or tomorrow, I think I want to go home today" instructed patient on new orders for updated pain medication and that Dr. Beavers wants to see how she will tolerate with these pain medications prior to going home, RN attempted to assess pain level, patient states, "I'm trying not to take pain medication". Patient wants IV removed, refusing antibiotic. Dr. Beavers called, orders to discontinue IV antibiotic/saline lock, he will call patient to discuss POC. Addendum: 08/18/20 at 1516 by Kena Mallory RN UA results reviewed with Dr. Beavers.
--- NOTE | 2020-08-18 15:15 | NUR ---
NURSE NOTES: Instructed patient on new order to discontinue IV saline lock and antibiotic. Patient aware that once IV saline lock out there is no IV access in case patient would need IV pain medication and that she currently does not have IVF or IV antibiotic ordered, verbalized understanding, states, "I want it out". RAC saline lock discontinued at this time, no active bleeding noted.
[2020-08-18 15:37] VITALS: BP 122/72
--- NOTE | 2020-08-18 16:00 | NUR ---
INSURANCE CLINCALS AND REVIEW FAXED TO [facility] FAX [phone] TELE [phone]
--- NOTE | 2020-08-18 16:39 | NUR ---
NURSE NOTES: Received call from Dr. Beavers, updated on patient current status, medicated with Tylenol #3 at 1533 for pain 10/28, reassessed patient, improved, reports, "feels better, like a period cramp" and that patient wants to wait until after dinner to decide if she wants to go home, will update Dr. Beavers around 1800. Will have patient text Dr. Beavers with her pharmacy information per Dr. Beavers request.
--- NOTE | 2020-08-18 17:44 | NUR ---
NURSE NOTES: Received call from Dr. Beavers, updated on patient current status, ate 25% of dinner, no NV, denies need for additional pain medication, orders for discharge, patient and Reta CN, updated.
--- NOTE | 2020-08-18 18:07 | Discharge Summary ---
Discharge Summary Hospital Course Date of Admission Aug 16, 2020 at 13:20 Date of Discharge Aug 18, 2020 @ 28:00 Admitting Diagnosis abd pain, s/p uterine artery embolization Reason for Hospitalization: Pain control HPI 34 F h/o UF POD1 S/P UFE p/w BLQ pain. AFVSS on RA. CT without acute findings. No BM x 3 days. No FC, no CP, no SOB, no NVDC. No bleeding. Consultations Wong Beavers MD - NEWS CLERK Procedures NONE Hospital Course Patient was admitted to the hospital for pain control and bowel regimen. By HD 3 her bowel function had resumed and pain was controlled. She was cleared by Dr. Beavers for D/C home and has F/U with him. She is AFVSS with benign findings on exam. Discharge Condition Upon Discharge: improving Discharge Vital Signs Last Vital Signs Date Time Temp Pulse Resp B/P (MAP) Pulse Ox O2 Delivery O2 Flow Rate FiO2 08/18/20 15:37 98.3 76 18 122/72 (89) 95 08/18/20 09:00 Room Air Discharge Disposition Patient was discharged to home Discharge Diagnoses: (1) Abdominal pain (2) Post-op pain (3) Constipation Discharge Instructions Discharge Instructions Follow up with: Dr. Beavers next week as directed Call MD/Return to Hospital if: Inc pain, fevers or any toher complaints Diet: regular Activity: resume normal activities, as tolerated Pneumonia Vaccine: pt refused vaccine Influenza Vaccine (Apr to Sep): pt refused vaccine May Return to Work/School On: Aug 18, 2020 Jefry Yeboah MD Aug 18, 2020 18:07
[2020-08-18] MEDS ORDERED: ACETAMINOPHEN-1 EAC1 ORAL (18:32)
--- NOTE | 2020-08-18 18:33 | NUR ---
NURSE NOTES: Home medications reconciled with Dr. Yeboah, orders to continue previously ordered antibiotic (patient has filled / has at home) and new RX for Tylenol #3 (prescription given to patient today)
[2020-08-18] MEDS ORDERED: NS 275ml ONE (19:09)
[2020-08-18] MEDS ORDERED: Tubing IV Secondary IV ONE (19:09)
--- NOTE | 2020-08-18 19:10 | NUR ---
NURSE NOTES: Discharge instructions and prescription x1 reviewed with patient, verbalized understanding. All belongings, discharge instructions, prescription x1, and home medications that were in pharmacy security given to patient. Patient ambulated down to [facility] with Kayley TURK, in stable condition. Discharged home at 1910.
== END 2020-08-18 19:10 | disposition home or self-care (01) | DRG 947 ==
LOC: EMR 11:06 → 4E 12:26 → EDBEDREQ 12:37 → OBSVTOIN 13:20
DX: G89.18 Other acute postprocedural pain (principal); K66.1 Hemoperitoneum; N99.840 Postprocedural hematoma of a genitourinary system organ or structure following a genitourinary system procedure; K59.00 Constipation, unspecified; Y83.8 Other surgical procedures as the cause of abnormal reaction of the patient, or of later complication, without mention of misadventure at the time of the procedure
CPT/HCPCS: 36415; 74176; 74177; 80053; 81001; 81003; 81025; 85025; 87324; 96374; 96375; 96376; 99285; J2405